=== PATIENT | male | born 1960 | race Caucasian/White ===

== ENCOUNTER 2021-07-09 16:43 | Observation (INO) | payer BC, SELFPAY ==
[2021-07-09] VITALS (16 sets, daily range): BP systolic 110–176; BP diastolic 83–119; PULSE 72–96; RESP 10–22; TEMP 36.2–37.1; O2SAT 97–100; BMI 39.3
--- NOTE | ~2021-07-09 | XR_ITS ---
EXAMINATION: XR chest 2V EXAM DATE: 07/09/2021 17:21 INDICATION: cp, sob, HX HTN, MID CP . TECHNIQUE: Frontal and lateral projections of the chest obtained and reviewed. There is no prior ted dy for comparison. FINDINGS: There is right upper lobe granuloma. The lungs are otherwise clear. There are no pleural e ffusions. The cardiomediastinal silhouette is within normal limits. There is no pneumothorax suspec pippa. The bones and soft tissues are unremarkable. IMPRESSION: No acute cardiopulmonary findings. Reviewed, dictated and finalized at location G. OR CARE ASSISTANT
--- NOTE | 2021-07-09 16:44 | ECG_ITS ---
Measurements Intervals [place] Rate: 80 P: 41 OR: 177 QRS: -45 QRSD: 106 T: 32 QT: 373 QTc: 432 Interpretive Statements SINUS RHYTHM ATRIAL PREMATURE COMPLEXES INCOMPLETE RIGHT BUNDLE BRANCH BLOCK LEFT ANTERIOR FASCICULAR BLOCK ABNORMAL ECG Electronically Signed On 07-09-2021 20:59:44 UI UX DEVELOPER by Robert Taylor D.O.
[2021-07-09 17:11] LABS: Basophils Percent Auto 0.9 % (0.2-1.2); Eosinophils Absolute Auto 0.5 K/mm3 (0-0.3); Eosinophils Percent Auto 9.8 % (0-4.4); Hematocrit 43.2 % (42.0-52.0); Hemoglobin 14.3 g/dL (14.0-18.0); Immature Granulocyte Absolute 0.01 K/mm3 (0.00-0.031); Immature Granulocyte Percent A 0.2 % (0-0.5); Immature Platelet Fraction Pct 6.7 % (0.9-11.2); Lymphocytes Absolute Auto 1.17 K/mm3 (0.9-3.2); Lymphocytes Percent Auto 25.4 % (18.3-44.2); Mean Corpuscular HGB Conc 33.1 g/dl (32-36); Mean Corpuscular Hemoglobin 29.5 pg (26-34); Mean Corpuscular Volume 89.3 fl (80-100); Mean Platelet Volume 11.4 fl (7.4-10.4); Monocytes Absolute Auto 0.8 K/mm3 (0.1-0.6); Monocytes Percent Auto 17.4 % (2.6-8.5); Neutrophils Absolute Auto 2.1 K/mm3 (1.3-6.7); Neutrophils Percent Auto 46.3 % (45.5-73.1); Platelet Count Result 104 k/mm3 (150-375); Red Blood Count 4.84 M/mm3 (4.6-6.20); Red Cell Distribution Width 13.3 % (11.5-14.5); White Blood Count 4.6 K/mm3 (4.5-10.0)
[2021-07-09 17:20] LABS: INR 1.1; Prothrombin Time 13.6 Seconds (11.1-14.7)
[2021-07-09 17:21] LABS: Alanine Aminotransferase 136 U/L (4-50); Albumin Level 4.5 g/dL (3.5-5.1); Alkaline Phosphatase 54 U/L (38-126); Anion Gap 5 mmol/L (8-16); Aspartate Amino Transferase 130 U/L (17-59); Bilirubin,Total 0.6 mg/dL (0.2-1.3); Blood Urea Nitrogen 13 mg/dL (9-20); Calcium 9.4 mg/dL (8.4-10.2); Carbon Dioxide 27 mmol/L (22-30); Chloride 102 mmol/L (98-107); Estimated CRCL calculation 102 ml/min; Estimated Glomerular Filt Rate > 60; Glucose 96 mg/dL (65-110); Lipase 87 U/L (23-300); Partial Thromboplastin Time 28.1 SECONDS (22.3-36.8); Potassium 4.2 mmol/L (3.4-5.0); Sodium 134 mmol/L (137-145)
[2021-07-09 17:32] LABS: Troponin I < 0.012 ng/mL (0.000-0.034)
--- NOTE | 2021-07-09 19:43 | ED.CHESTPAIN ---
HPI - Chest Pain General Chief Complaint: Chest Pain Stated Complaint: chest pain Time Seen by Provider: 07/09/21 19:33 Source: patient Mode of arrival: ambulatory Limitations: no limitations History of Present Illness HPI narrative: Patient is a 61-year-old male complaining of chest chest discomfort, midsternal, mild, nonradiating worse with exertion started yesterday after shoveling snow. Patient denies any shortness of breath, abdominal pain, nausea, vomiting, diaphoresis, fever or chills. Related Data Allergies Allergy/AdvReac Type Severity Reaction Status Date / Time No Known Allergies Allergy Verified 07/09/21 20:00 Review of Systems Review of Systems: All systems reviewed & are unremarkable except as noted in HPI and below Constitutional: Constitutional: Denies body ache(s), Denies chills, Denies excessive sweating, Denies fatigue, Denies fever(s), Denies headache(s), Denies lethargy, Denies malaise, Denies weakness and Denies weight loss Eyes: Eyes: Denies blurry vision, Denies change in vision and Denies loss of vision ENT: Denies dizziness, Denies ear discharge, Denies headache(s), Denies lip swelling, Denies epistaxis, Denies nasal congestion, Denies neck pain, Denies throat swelling and Denies tongue swelling Cardiovascular: Cardiovascular: Denies diaphoresis, Denies rapid heart rate, Denies edema, Denies irregular heart rhythm, Denies lightheadedness, Denies palpitations, Denies dyspnea and Denies dyspnea on exertion Respiratory: Respiratory: Denies chest congestion, Denies cough, Denies hemoptysis, Denies dyspnea and Denies dyspnea on exertion Gastrointestinal: Gastrointestinal: Denies abdominal pain, Denies melena, Denies hematochezia, Denies diarrhea, Denies nausea, Denies vomiting and Denies hematemesis Musculoskeletal: Musculoskeletal: Denies abnormal gait, Denies deformity, Denies joint swelling, Denies limited range of motion, Denies neck pain and Denies numbness Neurologic: Denies Abnormal speech present, Denies abnormal gait, Denies confusion, Denies dizziness, Denies headache(s), Denies focal weakness, Denies loss of vision, Denies numbness, Denies Other visual disturbances, Denies Sensory deficit (Neuro) and Denies weakness Psychiatric: Psychiatric: Denies confusion, Denies depression, Denies auditory hallucinations, Denies homicidal ideation and Denies suicidal ideation Endocrine: Endocrine: Denies cold intolerance, Denies excessive sweating, Denies fatigue, Denies heat intolerance and Denies palpitations Hematologic/Lymphatic: Hematologic/Lymphatic: Denies easy bleeding and Denies easy bruising Allergic/Immunologic: Allergic/Immunologic: Denies lip swelling, Denies throat swelling and Denies tongue swelling PMFSH Comments Past medical history: Hypertension Family history: Positive for coronary artery disease Social history: Non-smoker no EtOH or drug use Exam Const: General: cooperative, healthy appearing, comfortable, no acute distress, well developed, alert and awake; No confusion Orientation/consciousness: oriented to person, oriented to place, oriented to time, patient oriented x3 and No confusion Limitations: no limitations HENMT: Head: normal to inspection, normocephalic and atraumatic Ears: hearing grossly normal bilaterally, TM normal on the right and TM normal on the left General nose exam: Normal external nose present, Normal nares present and No nasal discharge present Face and sinus: normal facial exam Mouth: Yes Normal oral and palatal mucosa present, Yes lip normal, Yes tongue normal and Yes oropharynx normal Throat: posterior oropharynx normal, tonsils normal and uvula midline Eyes: General: appearance normal, both eyes and all related structures Pupils: Equal, round and reactive pupils present EOM: EOMs intact bilaterally Neck: Neck: normal visual inspection, full ROM, no lymphadenopathy and no meningeal signs Chest: Chest palpation & inspection: normal inspection of the chest R
[2021-07-09] MEDS: ASPIRIN 81 MG CHEWABLE TABLET 324 MG PO (20:03)
[2021-07-09] MEDS: NITROGLYCERIN OINTMENT 1 INCH DOSE TRANSDERM (20:04)
[2021-07-09 21:11] LABS: Troponin I < 0.012 ng/mL (0.000-0.034)
[2021-07-09 22:28] LABS: SARS-CoV-2 RNA PCR Negative
--- NOTE | 2021-07-09 23:30 | ADMGEN ---
This patient, Ashok Neal, was admitted to Medical Room 248-01. Patient/family oriented to hospital policies and general routines including ID bracelet, bed and alarms, visiting hours, pain management, procedures, bathroom and other care routines, personal items, smoking policy, room service/diet, and visiting hours. Information on how to activate the Rapid Response Team has been discussed. Patient/Family are encouraged to report perceived risks to care and to ask questions if they do not understand what they are told or what they should do.
[2021-07-10] VITALS (7 sets, daily range): BP systolic 107–137; BP diastolic 74–99; PULSE 71–84; RESP 16–18; TEMP 35.9–36.5; O2SAT 98–100
--- NOTE | 2021-07-10 | ECHO_ITS ---
Patient Info Name: Ashok Neal Age: 61 years : 1960 Gender: Male Ht: 70 in Wt: 274 lbs BSA: 2.53 m2 HR: 62 bpm BP: 107 / 74 mmHg Technical Quality: Fair Exam Date: 07/10/2021 11:07 AM Exam Location: [facility] Patient Status: Inpatient Admit Date: 07/09/2021 Staff Ordering Physician: Hardy Smiley MD Sheriffs Officer: Maryam Luna RDCS Attending Provider: Allegra Mcunlty PA-C Exam Type: CA echo dop color flow w con Study Info Indications R07.1 - Chest pain on breathing Complete two-dimensional, color flow and Doppler transthoracic echocardiogram is performed with contrast to opacify the left ventricle and to improve the deliniation of the left ventricle endocardial borders. Contrast/Agitated Saline Contrast/Ag. Saline: Definity Amount: 4.00 ml Summary 1. Mild LVH, borderline LV enlargement; normal LV systolic and diastolic function, ejection fraction 65-70%. Mild left atrial enlargement. Mitral annular calcification, no significant MR. Normal aortic valve structure, no hemodynamically significant stenosis. Unable to assess RVSP due to inadequate TR jet. Sinus rhythm. Left Ventricle Left ventricular systolic function is normal, estimated at 65-70%. There is mildly increased left ventricular wall thickness. The left ventricular diastolic function is normal. Right Ventricle Right ventricular chamber dimension is normal. Right ventricular systolic function is normal. Left Atria Left atrial chamber dimension is mildly enlarged. Right Atria Right atrial chamber dimension is normal. Aortic Valve The aortic valve is normal. There is no aortic valve stenosis. Pulmonic Valve The pulmonic valve is normal. Mitral Valve There is no mitral valve regurgitation. There is mild mitral valve calcification. Pericardium/Pleural The pericardium appears epicardial fat pad. There is trivial pericardial effusion. Aorta The aortic root size at the sinus of Valsalva is normal. Left Ventricular Outflow Tract Name Value Normal LVOT 2D LVOT Diameter 2.19 cm LVOT Doppler LVOT Peak Gradient 4 mmHg LVOT Mean Gradient 2 mmHg LVOT VTI 19.95 cm LVOT VTI/AV VTI Ratio 0.77 LVOT Stroke Volume 75.14 ml LVOT CO 5.55 l/min LVOT CI 2.19 L/min/m2 Pulmonic Valve Name Value Normal PV Doppler PV Peak Gradient 3 mmHg Mitral Valve Name Value Normal MV Doppler
[2021-07-10 00:50] LABS: Troponin I < 0.012 ng/mL (0.000-0.034)
[2021-07-10] MEDS: SUMAtriptan SUCCINATE 25 MG TABLET PO (01:21)
--- NOTE | 2021-07-10 08:43 | PM.CNCAR ---
Assessment and Plan Assessment and plan (1) Chest pain: Qualifiers: Chest pain type: unspecified Qualified Code(s): R07.9 - Chest pain, unspecified Code(s): R07.9 - Chest pain, unspecified Status: Acute Assessment and Plan: 61-year-old obese male with history of hypertension, hypothyroidism on thyroxine replacement, history of ? Asthma in childhood, heavy alcohol abuse. Patient presented to the hospital with 3 day history of cough, congestion, chest discomfort and shortness of breath. His EKG did not show any acute ST segment abnormality, serial troponins are negative. COVID-19 PCR negative. -check NT proBNP -will check echocardiogram with Doppler to assess LV function and rule out any major structural heart disease. Patient has history of heavy alcohol abuse and will determine any alcohol induced cardiomyopathy. -patient's current symptoms are not suggestive of myocardial ischemia however, will determine need for any ischemic workup based on clinical course and echo findings. -check thyroid panel (2) Hypertension: Code(s): I10 - Essential (primary) hypertension Status: Acute Assessment and Plan: Continue current antihypertensives (3) Alcohol abuse: Code(s): F10.10 - Alcohol abuse, uncomplicated Status: Acute Assessment and Plan: Patient was advised to cut down on alcohol. He verbalized understanding. History of Present Illness History of Present Illness Consult date/time: 07/10/21 08:43 DATE OF CONSULT: 07/10/2021 REASON FOR CONSULT: REQUESTING PHYSICIAN:Ezio Zheng MD CHIEF COMPLAINT: Chest pain HPI: 61-year-old male with hypertension, hypothyroidism on thyroxine replacement, alcohol abuse. Patient presented [facility] on 07/09/2021 with complaints of 3 day history of cough, congestion, shortness of breath and chest discomfort. Patient states that he was in his usual state of health until 3 days ago when he started having some cough with scant expectoration, associated with shortness of breath and chest pressure. He denies any fever chills. Patient states that he is vaccinated and boosted against COVID-19. He denies any prior cardiac history including clinical LA, angina, heart failure or any known arrhythmias. Patient states that he had childhood asthma and his current symptoms feel somewhat similar to what he used to have in the past. Patient drinks heavily, about 6-7 beers and other alcoholic beverages per day. He manages multiple restaurants. He is a nonsmoker. EKG on my personal evaluation showed sinus rhythm, PACs, incomplete right bundle-branch block, LAFB. COVID-19 negative. Serial troponins negative. Chest x-ray unremarkable. Reason For Visit: Chest Pain Review of Systems Review of Systems: General: Negative for fever, chills, fatigue Psychological: Negative for anxiety, depression Ophthalmic: negative for loss of vision ENT: Some congestion Allergy and immunology: Negative for hives, nasal congestion Hematologic and lymphatic: Negative for overt bleeding problems Endocrine: Negative for hot flashes, palpitations Respiratory: Cough with scant expectoration, shortness of breath Cardiovascular: Chest discomfort, shortness of breath Gastrointestinal: Negative for abdominal pain, nausea, vomiting, hematochezia Musculoskeletal: Negative for myalgia, joint pains Neurological: Negative for weakness Dermatological: Negative for rash, skin discoloration PMFSH Past Medical History Medical History (Updated 07/10/21 @ 09:16 by Hardy Smiley MD) Hypertension Surgical History Surgical History (Updated 07/10/21 @ 09:12 by Hardy Smiley MD) H/O Achilles tendon repair Family History Family History (Updated 07/10/21 @ 09:12 by Hardy Smiley MD) Father Heart disease Mother Heart disease Acute myocardial infarction Social History Social History Years smoked:
[2021-07-10] MEDS: hydroCHLOROthiazide 25 MG TABLET PO (09:11)
[2021-07-10] MEDS: LEVOTHYROXINE SODIUM 100 MCG TABLET PO (09:11)
[2021-07-10] MEDS: carvediloL 12.5 MG TABLET PO (09:11)
[2021-07-10 09:20] LABS: Alanine Aminotransferase 136 U/L (4-50); Albumin Level 4.5 g/dL (3.5-5.1); Alkaline Phosphatase 49 U/L (38-126); Anion Gap 5 mmol/L (8-16); Aspartate Amino Transferase 142 U/L (17-59); Bilirubin,Total 0.8 mg/dL (0.2-1.3); Blood Urea Nitrogen 13 mg/dL (9-20); Calcium 9.2 mg/dL (8.4-10.2); Carbon Dioxide 28 mmol/L (22-30); Chloride 101 mmol/L (98-107); Estimated CRCL calculation 115 ml/min; Estimated Glomerular Filt Rate > 60; Glucose 178 mg/dL (65-110); Potassium 3.9 mmol/L (3.4-5.0); Sodium 134 mmol/L (137-145)
[2021-07-10] MEDS: ALBUTEROL SULFATE (*SP) AEROSOL 1 PUFF INHALATION (09:38)
[2021-07-10] MEDS: ACETAMINOPHEN 325 MG TABLET 650 MG PO (09:39)
--- NOTE | 2021-07-10 10:12 | PM.IMHP ---
H&P: HPI History of Present Illness Date/Time: 07/10/21 10:12 Chief Complaint: CP/SOB Narrative: Patient is a 61-year-old man with a history of hypertension, dyslipidemia, hypothyroidism, reactive airway disease as a child, who presented to the emergency room with shortness of breath and chest tightness. Patient states a few days ago he developed some shortness of breath and a slight cough. His symptoms became worse while he was outside shoveling snow. After struggling snow he had some shortness of breath, chest tightness and he used his albuterol inhaler with immediate improvement of his breathing and symptoms. He called primary care doctor who prescribed him prednisone, albuterol inhaler and cough medication. Yesterday prior to arrival around 1:00 p.m. he had worsening shortness of breath with conversation with associated chest tightness and cough. He also noticed some dyspnea with exertion along with fatigue. He decided to come to the emergency room given his family history of mom having CAD status post CABG and his father had what sounds like SVT status post ablation and of pulmonary embolism is 61 years old. Patient states he is compliant with his CPAP which he has had for 22 years. At this time he is feeling much better after having his albuterol inhaler. He is coughing up some clear/yellow phlegm production after using the inhaler. Denies any fevers, chills, chest pain at this time, nausea, vomiting, abdominal pain, leg swelling, calf pain, lightheadedness, dizziness, palpitations, or any other symptoms at this time. Review of Systems Review of Systems: All systems reviewed & are unremarkable except as noted in HPI and below [facility] Past Medical History Medical History Hypertension Hypothyroidism SANDY on CPAP Surgical History Surgical History H/O Achilles tendon repair History of umbilical hernia repair Family History Family History Father Heart disease Mother Heart disease Acute myocardial infarction Social History Social History (Updated 07/10/21 @ 13:42 by Allegra Mcnulty PA-C) Social History: POA: Maryam Neal Code Status: Full Code PCP: Dr. 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 Spiritual care concerns: No Meds Home Medications and Allergies Home Medications Medication Instructions Recorded Confirmed Type carvedilol 12.5 mg PO BID 07/09/21 07/09/21 History hydrochlorothiazide 25 mg PO DAILY 07/09/21 07/09/21 History levothyroxine 100 mcg PO DAILY 07/09/21 07/09/21 History albuterol sulfate 1 puff INHALATION Q4H PRN 07/10/21 07/10/21 History Allergies Allergy/AdvReac Type Severity Reaction Status Date / Time banana AdvReac Swelling Verified 07/09/21 23:54 of Lip/Tongue/Throat melon AdvReac Swelling Verified 07/09/21 23:54 of Lip/Tongue/Throat [place] AdvReac Swelling Uncoded 07/09/21 23:54 of Lip/Tongue/Throat Vital Signs Vital Signs - 24 hr 07/09/21 16:50 07/09/21 17:00 07/09/21 20:03 Temperature 98.7 F 98.7 F Pulse Rate 84 84 84 Respiratory Rate 16 16 17 Blood Pressure 163/108 H 163/108 H Pulse Oximetry 100 100 07/09/21 20:04 07/09/21 20:25 07/09/21 20:26 Temperature Pulse Rate 81 82 Respiratory Rate 10 L 12 Blood Pressure 176/119 H Pulse Oximetry 99 100 100 07/09/21 20:43 07/09/21 20:45 07/09/21 21:00 Temperature Pulse
[2021-07-10 10:21] LABS: NT Pro B Type Natriuretic Pept 40 pg/mL (5-100)
[2021-07-10 11:37] LABS: Free T4 Free Thyroxine Reflex 0.84 ng/dL (0.78-2.19)
[2021-07-10] MEDS: PERFLUTREN LIPID MICROSPHERES 1.5 ML VIAL DILUTED TO 10 ML TOTAL VOLUME IV PUSH (11:41)
--- NOTE | 2021-07-10 11:42 | IVDEFINITY ---
Prior to administration of IV Definity the patient was educated on the risks and benefits of the imaging enhancing agent including potential adverse side effects. The patient verbalized understanding. Allergies were verified. No exclusion criteria were identified and at least one of the following inclusion criteria were met: 1) physician request, 2) patient technically difficult to image (per the [place] [employer]ocardi[employer] guidelines of two or more segments not discernable within the apical view), or 3) questionable left ventricular function. ?
[2021-07-10 12:33] LABS: Total Triiodothyronine (T3) 1.19 NG/ML (0.97-1.69)
--- NOTE | 2021-07-10 14:36 | PM.DS ---
DS: Admitting Diagnosis Discharge Date 07/10/21 Admitting Diagnosis Chest pain/SOB DS: Discharge Diagnosis Discharge Diagnosis (1) Chest pain: Qualifiers: Chest pain type: unspecified Qualified Code(s): R07.9 - Chest pain, unspecified Code(s): R07.9 - Chest pain, unspecified Status: Acute Assessment and Plan: Patient is a 61-year-old man with a history of hypertension, dyslipidemia, hypothyroidism, reactive airway disease as a child, who presented to the emergency room with shortness of breath and chest tightness. Patient states a few days ago he developed some shortness of breath and a slight cough. His symptoms became worse while he was outside shoveling snow. After struggling snow he had some shortness of breath, chest tightness and he used his albuterol inhaler with immediate improvement of his breathing and symptoms. He called primary care doctor who prescribed him prednisone, albuterol inhaler and cough medication. Yesterday prior to arrival around 1:00 p.m. he had worsening shortness of breath with conversation with associated chest tightness and cough. He also noticed some dyspnea with exertion along with fatigue. He decided to come to the emergency room given his family history of mom having CAD status post CABG and his father had what sounds like SVT status post ablation and of pulmonary embolism is 61 years old. Patient states he is compliant with his CPAP which he has had for 22 years. At this time he is feeling much better after having his albuterol inhaler. Initial vitals showed elevated blood pressure at 163/108, heart rate 84, afebrile, normal oxygenation on room air. Initial labs showed normal CBC other than thrombocytopenia at 104,000, slight hyponatremia at 134, normal renal function, elevated liver enzymes with an AST of 130, ALT 136. Troponins negative x3. Normal lipase. COVID PCR negative. TSH normal. BNP normal. Chest x-ray showed no acute cardiopulmonary findings. EKG on arrival showed no acute ST T-wave changes. The patient was admitted into the hospital with a cardiology consult given his chest tightness and shortness of breath. Echocardiogram showed Mild LVH, borderline LV enlargement; normal LV systolic and diastolic function, ejection fraction 65-70%. Mild left atrial enlargement. Mitral annular calcification, no significant MR. Normal aortic valve structure, no hemodynamically significant stenosis. Cardiology evaluated the patient and is in agreement with discharge at this time. Recommends starting Aspirin 81 mg daily until further work up can be done outpatient with a stress test. Follow up with Cardiology at discharge for further evaluation and testing. At this time the patient is feeling well without any chest pain. He did report some shortness of breath earlier which was immediately relieved with the albuterol inhaler. He is now feeling back to his baseline and not have any dyspnea with conversation. Believe his shortness of breath is due to reactive airway disease and will continue his prednisone, albuterol inhaler p.r.n. cough suppressant that was prescribed primary care provider. Follow-up instructions given. Return to ER warnings given. The patient understands and agrees the plan all questions answered. (2) Hypertension: Code(s): I10 - Essential (primary) hypertension Status: Acute Assessment and Plan: Blood pressure this morning was 107/74. Well controlled. Will continue his home blood pressure medications. (3) Hypothyroidism: Code(s): E03.9 - Hypothyroidism, unspecified Status: Inactive Assessment and Plan: Normal TSH. Continue levothyroxine. (4) Alcohol abuse: Code(s): F10.10 - Alcohol abuse, uncomplicated Status: Acute Assessment and Plan: Lissette
== END 2021-07-10 15:40 | disposition home or self-care (01) ==
LOC: ANHED 20:44 → ANH2MED 22:03
PROVIDERS: Emergency Medicine; Internal Medicine Cardiovascular Disease; Physician Assistant; Admitting Provider Internal Medicine; Emergency Provider Emergency Medicine; Visit Provider Family Medicine
DX: R07.9 Chest pain, unspecified (principal); J45.909 Unspecified asthma, uncomplicated; I10 Essential (primary) hypertension; D69.6 Thrombocytopenia, unspecified; E03.9 Hypothyroidism, unspecified; E78.5 Hyperlipidemia, unspecified; G47.33 Obstructive sleep apnea (adult) (pediatric); R79.89 Other specified abnormal findings of blood chemistry; Z20.822 Contact with and (suspected) exposure to COVID-19; F10.10 Alcohol abuse, uncomplicated
CPT/HCPCS: 36415; 71046; 80053; 83690; 83880; 84439; 84443; 84480; 84484; 85025; 85055; 85610; 85730; 93005; 94640; 96374; 99285; A9270; C8929; C9803; G0378; Q9957; U0003; U0005